=== PATIENT | female | born 1950 | race Caucasian/White ===

== ENCOUNTER 2017-04-24 11:45 | Emergency (ER) | payer OTHER, MEDICARE ==
[2017-04-24 11:53] VITALS: TEMP 97.9
--- NOTE | 2017-04-24 12:56 | EDPHY ---
H & P Stated Complaint: C/O speech concerns for 4 weeks secondary to "a muscle in tongue". Time Seen by Provider: 04/24/17 12:56 - Personal History Current Tetanus Diphtheria and Acellular Pertussis (TDAP): Yes - Medical/Surgical History Hx Asthma: No Hx Chronic Respiratory Disease: No Hx Diabetes: No Hx Cardiac Disease: No Hx Renal Disease: No Hx Cirrhosis: No Hx Alcoholism: No Hx HIV/AIDS: No Hx Splenectomy or Spleen Trauma: No Other PMH: asthma. - Social History Smoking Status: Never smoked Constitutional: Initial Vital Signs Temperature (C) 36.6 C 04/24/17 11:48 Heart Rate 94 04/24/17 11:48 Respiratory Rate 16 04/24/17 11:48 Blood Pressure 114/67 04/24/17 11:48 O2 Sat (%) 96 04/24/17 11:48 O2 Delivery Mode Room Air Allergies/Adverse Reactions: No Known Allergies Allergy (Unverified 04/24/17 11:53) Home Medications: Medication Instructions Recorded NK [No Known Home Meds] 04/24/17 Medical Decision Making - Diagnostics Imaging: Discussed imaging studies w/ house calls nurse practitioner Radiologist, I viewed and interpreted images myself ED Course/Re-evaluation: CHIEF COMPLAINT: Dysarthria HISTORY OF PRESENT ILLNESS: The patient is a 66 y/o female complaining of a "weird sensation in her tongue" for the last month. She has been traveling for the last month and has felt quite fatigued. After waking up from a nap on month ago, she felt like her tongue was "not working right" and she feels like "I have to work at it" to pronounce "S's." She describes this as "purely a tongue muscle problem." Her son noted her speech sounded different about 1 week ago when speaking with her on the phone. She denies any confusion or difficulty thinking of words. No associated sensation issues or peripheral weakness or paresthesias. She denies acute dyspnea, chest pain, calf pain, leg swelling, fever, or other symptoms. No recent illness or trauma. No history of blood clots. REVIEW OF SYSTEMS: A 10 point review of systems was performed and is negative with the exception of the elements mentioned in the history of present illness. PHYSICAL EXAM: HR, BP, O2 Sat, RR. Temp noted General Appearance: Alert, well hydrated, appropriate, and non-toxic appearing. Head: Atraumatic without scalp tenderness or obvious injury Eyes: Pupils equal, round, reactive to light and accommodation, EOMI, no trauma , no injection. Nose: Atraumatic, no rhinorrhea, clear. Throat: There is no erythema or exudates, no lesions, normal tonsils, mucus membranes moist. Neck: Supple, nontender, no lymphadenopathy. Respiratory: No retractions, no distress, no wheezes, and no accessory muscle use. Lungs are clear to auscultation bilaterally. Cardiovascular: Regular rate and rhythm, no murmurs, rubs, or gallops. Good capillary refill all extremities. Gastrointestinal: Abdomen is soft, nontender, non-distended, no masses, no rebound, no guarding, no peritoneal signs. Musculoskeletal: Normal active ROM of all extremities, atraumatic. Neurological: Alert, appropriate, and interactive. The patient has non-focal cranial nerves, motor, sensory, and cerebellar exam. No dysarthria appreciated on exam. Skin: No rashes, good turgor, no nodules on palpation. Past medical history: Exercise-induced asthma Past surgical history: noncontributory Family history: noncontributory Social history: Lives in [place]. . Self-employed. DIAGNOSTICS/PROCEDURES/CRITICAL CARE TIME: Brain MRI: nonspecific white matter lesions DIFFERENTIAL DIAGNOSIS: The differential diagnosis for the patient's symptoms included but was not limited to peripheral causes, central causes including CVA , TIA, MS, myasthenia gravis, electrolyte abnormalities and dehydration, cardiogenic causes, atypical causes like migraine syndrome. MEDICAL DECISION MAKING: This is a 66 y/o female who presents with the sensation of dysarthria for the last month. I do not appreciate any difficulty with speech on assessment and her neurologic exam is completely normal. Though a friend referred her here with concern for a PE, she has no evidence of this on exam. She has no dyspnea, tachycardiac, tachypnea, chest pain, or other risk factors for PE. Plan for basic labs and Brain MRI. MRI shows nonspecific white matter lesions. We've ruled out acute causes like stroke and structural abnormality. I reassessed patient and discussed results. I recommended follow up with a neurologist. She agrees to plan. Return precautions discussed. - Data Points Laboratory Results: Laboratory Results 04/24/17 13:25 04/24/17 13:25 04/24/17 04/24/17 13:25 13:25 WBC 5.56 10^3/uL 10^3/uL (3.80-9.50) RBC 4.23 10^6/uL 10^6/uL (4.18-5.33) Hgb 14.1 g/dL g/dL (12.6-16.3) Hct 39.6 % % (38.0-47.0) MCV 93.6 fL fL (81.5-99.8) MCH 33.3 pg pg (27.9-34.1) MCHC 35.6 g/dL g/dL (32.4-36.7) RDW 12.2 % % (11.5-15.2) Plt Count 213 10^3/uL 10^3/uL (150-400) MPV 9.1 fL fL (8.7-11.7) Neut % (Auto) 60.9 % % (39.3-74.2) Lymph % (Auto) 21.6 % % (15.0-45.0) [place] % (Auto) 11.3 % % (4.5-13.0) Eos % (Auto) 4.9 % % (0.6-7.6) Baso % (Auto) 0.9 % % (0.3-1.7) Nucleat RBC Rel Count 0.0 % % (0.0-0.2) Absolute Neuts (auto) 3.39 10^3/uL 10^3/uL (1.70-6.50) Absolute Lymphs (auto) 1.20 10^3/uL 10^3/uL (1.00-3.00) Absolute Monos (auto) 0.63 10^3/uL 10^3/uL (0.30-0.80) Absolute Eos (auto) 0.27 10^3/uL 10^3/uL (0.03-0.40) Absolute Basos (auto) 0.05 10^3/uL 10^3/uL (0.02-0.10) Absolute Nucleated RBC 0.00 10^3/uL 10^3/uL (0-0.01) Immature Gran % 0.4 % % (0.0-1.1) Immature Gran # 0.02 10^3/uL 10^3/uL (0.00-0.10) Sodium 138 mEq/L mEq/L (134-144) Potassium 4.4 mEq/L mEq/L (3.5-5.2) Chloride 106 mEq/L mEq/L (97-110) Carbon Dioxide 23 mEq/l mEq/l (22-31) Anion Gap 9 mEq/L mEq/L (8-16) BUN 18 mg/dL mg/dL (7-23) Creatinine 0.8 mg/dL mg/dL (0.6-1.0) Estimated GFR > 60 Glucose 99 mg/dL mg/dL (70-100) Calcium 9.3 mg/dL mg/dL (8.5-10.4) Departure - Departure Disposition: Home, Routine, Self-Care Clinical Impression: Dysarthria Condition: Good Instructions: Additional Information Additional Instructions: Follow up with neurologist on Thursday. Return to the ED for any worsening of condition. Referrals: Velma Farnsworth MD [Primary Care Provider] - As per Instructions Margarito Yanes DO [Doctor of Osteopathy] - As per Instructions Report Scribed for: Raul Balbuena Report Scribed by: Cristin De Jesus Date of Report: 04/24/17 Time of Report: 13:12
[2017-04-24 13:45] LABS: % IMMATURE GRANULYOCYTES 0.4 % (0.0-1.1); ABSOLUTE IMMATURE GRANULOCYTES 0.02 10^3/uL (0.00-0.10); ADD DIFF? NO; ADD MORPH? NO; ADD SCAN? NO; ATYPICAL LYMPHOCYTE FLAG 20 (0-99); FRAGMENT RBC FLAG 0 (0-99); HEMATOCRIT 39.6 % (38.0-47.0); HEMOGLOBIN 14.1 g/dL (12.6-16.3); LEFT SHIFT FLG 0 (0-99); LIPEMIA HEMOLYSIS FLAG 90 (0-99); MEAN CELL HEMOGLOBIN 33.3 pg (27.9-34.1); MEAN CELL HEMOGLOBIN CONCENTR. 35.6 g/dL (32.4-36.7); MEAN CELL VOLUME 93.6 fL (81.5-99.8); MEAN PLATELET VOLUME 9.1 fL (8.7-11.7); PLATELET CLUMPS FLAG 0 (0-99); PLATELET COUNT 213 10^3/uL (150-400); RED BLOOD CELL COUNT 4.23 10^6/uL (4.18-5.33); RED CELL DISTRIBUTION WIDTH 12.2 % (11.5-15.2)
[2017-04-24 14:05] LABS: ANION GAP 9 mEq/L (8-16); CALCIUM 9.3 mg/dL (8.5-10.4); CARBON DIOXIDE 23 mEq/l (22-31); CHLORIDE 106 mEq/L (97-110); CREATININE 0.8 mg/dL (0.6-1.0); GLOMERULAR FILTRATION RATE > 60; GLUCOSE 99 mg/dL (70-100); POTASSIUM 4.4 mEq/L (3.5-5.2); SODIUM 138 mEq/L (134-144)
[2017-04-24 16:40] VITALS: BP 111/54; PULSE 88; RESP 18; O2SAT 94
== END 2017-04-24 16:40 | disposition home or self-care (01) ==
DX: R47.1 Dysarthria and anarthria (principal); J45.909 Unspecified asthma, uncomplicated

== ENCOUNTER 2017-07-10 07:06 | Day surgery (SDC) | payer OTHER, MEDICARE ==
--- NOTE | 2017-07-10 07:07 | PDHPUP ---
History & Physical Update H&P update statement: This history and physical update is based on an assessment of the patient which was completed after admission or registration (within 24 hours), but prior to the surgery/procedure. updated
[2017-07-10] MEDS ORDERED: METHYLENE BLUE 0.5% 50 MG/10 ML AMP ONE (07:20)
[2017-07-10] MEDS ORDERED: BUPIVACAINE/EPI 0.5% 30 ML SDV ONE (07:20)
[2017-07-10] MEDS ORDERED: HYDROGEN PEROXIDE 236 ML BOTTLE TP ONE (07:21)
[2017-07-10] MEDS ORDERED: cefOXitin SODIUM 2 GM in STERILE WATER INJ 21 ML IV ONE (07:26)
[2017-07-10] MEDS ORDERED: LR 1,000 ML IV ONE (07:27)
--- NOTE | 2017-07-10 08:37 | PDANEPAE ---
ANE Past Medical History - Cardiovascular History Hx Hypertension: No Hx Arrhythmias: No Hx Chest Pain: No Hx Coronary Artery / Peripheral Vascular Disease: No Hx CHF / Valvular Disease: No Hx Palpitations: No Cardiovascular History Comment: RUNS LOW BP - Pulmonary History Hx COPD: No Hx Asthma/Reactive Airway Disease: Yes Hx Recent Upper Respiratory Infection: No Hx Oxygen in Use at Home: No Hx Sleep Apnea: No Sleep Apnea Screening Result - Last Documented: Positive Pulmonary History Comment: EXERCISE INDUCED ASTHMA - Neurologic History Hx Cerebrovascular Accident: No Hx Seizures: No Hx Dementia: No - Endocrine History Hx Diabetes: No - Renal History Hx Renal Disorders: No - Liver History Hx Hepatic Disorders: No - Neurological & Psychiatric Hx Hx Neurological and Psychiatric Disorders: No - Cancer History Hx Cancer: No Cancer History Comment: PRE CANCEROUS - Congenital Disorder History Hx Congenital Disorders: No - GI History Hx Gastrointestinal Disorders: No - Other Health History Other Health History: NEG - Chronic Pain History Chronic Pain: No - Surgical History Prior Surgeries: APPENDECTOMY. C SECTION. CERVICAL CRYOSURGERY. OVARIAN CYSTECTOMY. CATARACTS [place]. SMALL FINGER R ANE Review of Systems Review of Systems: - Exercise capacity METS (RN): 5 METS ANE Patient History - Allergies Allergies/Adverse Reactions: morphine Allergy (Verified 07/09/17 14:00) sense of internal itching - Home Medications Home Medications: Bupropion HCl 07/09/17 [Last Taken Unknown] Estrogens, Conjugated 07/09/17 [Last Taken Unknown] Neurontin 07/09/17 [Last Taken Unknown] Progesterone 07/09/17 [Last Taken Unknown] Ventolin Hfa Inhaler 07/09/17 [Last Taken Unknown] - NPO status NPO Since - Liquids (Date): 07/09/17 NPO Since - Solids (Date): 07/09/17 - Smoking Hx Smoking Status: Former smoker - Family Anes Hx Family Hx Anesthesia Complications: NEG ANE Labs/Vital Signs - Vital Signs Blood Pressure: 97/71 Heart Rate: 82 Respiratory Rate: 14 O2 Sat (%): 97 Height: 160.02 cm Weight: 55.338 kg ANE Physical Exam - Airway Mallampati Score: Class 2 - ASA Status ASA Status: II ANE Anesthesia Plan Anesthesia Plan: GA w LMA
[2017-07-10] MEDS ORDERED: fentaNYL 100 MCG/2 ML INJ ONE (08:40)
[2017-07-10] MEDS ORDERED: MIDAZOLAM 2 MG/2 ML VIAL ONE (08:40)
[2017-07-10] MEDS ORDERED: PROPOFOL 200 MG/20 ML VIAL ONE (08:41)
[2017-07-10] MEDS ORDERED: ONDANSETRON 4 MG/2 ML VIAL ONE (08:47)
[2017-07-10] MEDS ORDERED: LIDOCAINE 2% JELLY 5 ML TUBE ONE (08:47)
[2017-07-10] MEDS ORDERED: METOCLOPRAMIDE 10 MG/2 ML VIAL ONE (08:47)
[2017-07-10] MEDS ORDERED: fentaNYL 100 MCG/2 ML INJ IVP PRN (09:18)
[2017-07-10] MEDS ORDERED: ALBUTEROL 3 ML DEYVIAL IH PRN (09:18)
[2017-07-10] MEDS ORDERED: NALOXONE HCL 0.4 MG/ML INJ IVP PRN (09:18)
[2017-07-10] MEDS ORDERED: LR 500 ML IV PRN (09:18)
[2017-07-10] MEDS ORDERED: PROMETHAZINE HCL 25 MG/ML INJ IVP PRN (09:18)
--- NOTE | 2017-07-10 09:19 | POSTANESTH ---
Post Anesthetic Evaluation Cardiovascular Status: Normal, Stable Respiratory Status: Normal, Stable Level of Consciousness/Mental Status: Can Participate in Eval Pain Control: Adequate, Prn Tx Ordered Nausea/Vomiting Control: Adequate, Prn Tx Ordered Complications Possibly Related to Anesthesia: None Noted
--- NOTE | 2017-07-10 09:21 | POSTOPPROG ---
Post Op Note Date of Operation: 07/10/17 Surgeon: Berny Watkins Anesthesiologist: jannet Anesthesia: GET(General Endotracheal) Pre-op Diagnosis: anal polyp Post-op Diagnosis: same and grade 1 internal hemorhoid Indication: pain Procedure: EUA, ANAL POLYPECTOMY, INTERNAL HEM LIGATION Findings: GRADE 1 INTERNAL HEM AT 7 OCLOCK/ 1.5 CM PEDUNCULATED ANAL POLYP Inf/Abcess present in the surg proc area at time of surgery?: No Depth: Organ Space EBL: Minimal Complications: 0 Specimen(s): POLYP
[2017-07-10 09:43] VITALS: TEMP 97.5
[2017-07-10 10:24] VITALS: BP 99/61
[2017-07-10 10:51] VITALS: PULSE 80; RESP 16; O2SAT 96
--- NOTE | 2017-07-12 05:01 | GOP ---
[f rep st] OPERATIVE REPORT DATE OF OPERATION: 07/10/2017 SURGEON: Berny Watkins MD SCREW MACHINE REPAIRER: There was no bookkeeping assistant. ANESTHESIOLOGIST: Campbell Valentine MD. PREOPERATIVE DIAGNOSIS: Prolapsing anal polyp. POSTOPERATIVE DIAGNOSIS: 1. Prolapsing anal polyp. 2. Grade 1 internal hemorrhoids. PROCEDURE PERFORMED: Exam under anesthesia with anal polypectomy and internal hemorrhoid ligation. FINDINGS: The patient was found to have a long pedunculated polyp. Polyp was approximately 1.5 cm i n diameter with an inch and a half pedunculated stalk. She also had some grade 1 internal hemorrhoid s, 1 of which was prolapsing slightly at the 7 o'clock position. SPECIMENS: Path is pending. DESCRIPTION OF PROCEDURE: The patient was taken to the operating room where she received satisfactor y general endotracheal anesthesia by Dr. Valentine. She was prepped and draped in the usual sterile fas hion, after being placed in lithotomy position. The anus was infiltrated with 0.5% Marcaine and gent ly dilated. The prolapsing polyp was easily grasped and retracted outside the anus. It was suture l igated with 2-0 Vicryl at the base, which was then amputated. The specimen was sent to Pathology. O ne other additional mildly prolapsing internal hemorrhoid was seen at the 7 o'clock position, and thi s was rubber-band ligated without difficulties. The wound was further infiltrated with 0.5% Marcaine and dressed. She tolerated the procedure well. She was taken to the recovery room in good conditio n. There were no complications. Copy requested to: Rumgr /[id number]/MODL
== END 2017-07-10 10:51 | disposition home or self-care (01) ==
LOC: FSGY 07:06
PROVIDERS: ATTEND Surgery
PROC: 0DBQ8ZZ Excision of Anus, Via Natural or Artificial Opening Endoscopic (ICD-10-PCS; principal; 2017-07-10 08:30)
PROC: 06LY3CC Occlusion of Hemorrhoidal Plexus with Extraluminal Device, Percutaneous Approach (ICD-10-PCS; principal; 2017-07-10 08:30)
DX: K62.0 Anal polyp (principal); K64.0 First degree hemorrhoids; J45.990 Exercise induced bronchospasm; M85.80 Other specified disorders of bone density and structure, unspecified site
CPT/HCPCS: J0694; J2250; J2405; J2704; J2765; J3010; Q9968

== ENCOUNTER → 2017-08-21 | Outpatient (CLI) | payer OTHER, MEDICARE | LOC: FIMAGING 10:21 | PROVIDERS: ATTEND Nurse Practitioner Women's Health | DX: Z12.31 Encounter for screening mammogram for malignant neoplasm of breast (principal) ==

== ENCOUNTER → 2018-10-19 | Outpatient (CLI) | payer OTHER, MEDICARE | LOC: FIMAGING 15:24 | PROVIDERS: ATTEND Nurse Practitioner Women's Health | DX: Z12.31 Encounter for screening mammogram for malignant neoplasm of breast (principal) ==

== ENCOUNTER → 2018-10-25 | Outpatient (CLI) | payer OTHER, MEDICARE | LOC: BMCIMAGING 13:55 | PROVIDERS: ATTEND Family Medicine | DX: Z13.820 Encounter for screening for osteoporosis (principal); M85.89 Other specified disorders of bone density and structure, multiple sites ==